=== PATIENT | male | born 1965 | race Caucasian/White ===

== ENCOUNTER 2024-07-31 18:19 | Emergency (ER) | payer OTHER ==
[~2024-07-31] VITALS: Ht 172.7 cm; Wt 65.8 kg
[2024-07-31] MEDS ORDERED: Acetaminophen/Hydrocodone 5 MG/325 MG TABLET PO ONE (18:25)
== END 2024-07-31 23:20 ==
LOC: ED 18:19
DX: M25.561 Pain in right knee (principal); Z88.0 Allergy status to penicillin